=== PATIENT | male | born 2000 | race Caucasian/White ===

== ENCOUNTER 2024-04-16 20:07 | Emergency (ER) | payer OTHER ==
[~2024-04-16] VITALS: Ht 185.4 cm; Wt 108.9 kg
[2024-04-16] MEDS ORDERED: Ketorolac Tromethamine 60 MG/2 ML VIAL IM ONE (20:50)
[2024-04-16] MEDS ORDERED: NAPROSYN500 MG PO (21:01)
== END 2024-04-16 21:19 | disposition home or self-care (01) ==
LOC: ED 20:07
DX: S60.221A Contusion of right hand, initial encounter (principal); W01.0XXA Fall on same level from slipping, tripping and stumbling without subsequent striking against object, initial encounter; Y93.89 Activity, other specified; Y92.009 Unspecified place in unspecified non-institutional (private) residence as the place of occurrence of the external cause; Y99.8 Other external cause status

== ENCOUNTER 2025-03-02 13:45 | Emergency (ER) | payer OTHER ==
[~2025-03-02] VITALS: Ht 182.8 cm; Wt 108.9 kg
[~2025-03-02 13:45] MED LIST: NAPROSYN500 MG PO
[2025-03-02] MEDS ORDERED: CEPHALEXIN500 M1 PO (14:40)
[2025-03-02] MEDS ORDERED: Tdap Vaccine 0.5 ML SYR (Adult Vaccine) IM ONE (14:40)
[2025-03-02] MEDS ORDERED: Bacitracin Zinc 14 GM TUBE T ONE (15:00)
== END 2025-03-02 15:10 | disposition home or self-care (01) ==
LOC: ED 13:45
DX: S61.412A Laceration without foreign body of left hand, initial encounter (principal); W27.8XXA Contact with other nonpowered hand tool, initial encounter; Y93.89 Activity, other specified; Y92.89 Other specified places as the place of occurrence of the external cause; Y99.8 Other external cause status